=== PATIENT | male | born 1980 | race Two or more races ===

== ENCOUNTER → 2019-12-13 13:05 | Outpatient (CLI) | payer OTHER ==
[2015-05-15 11:33] VITALS: BMI 31.4
[~2019-12-13 13:05] MED LIST: HYDROCODONE-APA1 TAB PO; ULTRAM50 MG PO
== END | disposition home or self-care (01) ==
LOC: D.CT 13:00
PROVIDERS: ATTEND Internal Medicine Pulmonary Disease
DX: R04.2 Hemoptysis (principal)

== ENCOUNTER → 2020-01-07 16:05 | Outpatient (CLI) | payer OTHER ==
[2015-05-15 11:33] VITALS: BMI 31.4
[2020-01-07 17:32] LABS: APTT 30.1 SECONDS (22.8-39.4); INR 1.01 (0.85-1.17); PROTIME 13.3 SECONDS (11.6-15.0)
[2020-01-07 18:06] LABS: BASOPHILS 0.4 % (0-2); EOSINOPHILS 5.3 % (0-7); HEMATOCRIT 50.9 % (42.0-54.0); HEMOGLOBIN 17.6 g/dL (13.5-17.5); IMMATURE GRANULOCYTES 0.4 % (0-5); LYMPHOCYTES 33.7 % (15-50); MCH 29.5 pg (26.0-34.0); MCHC 34.6 g/dL (31.0-37.0); MCV 85.3 fL (80.0-100.0); MEAN PLATELET VOLUME 9.8 fL (7.4-10.4); MONOCYTES 5.4 % (2-11); NEUTROPHILS 54.8 % (40-80); PLATELET COUNT 195 10x3/uL (130-400); RBC 5.97 10x6/uL (4.20-6.10); RDW 13.2 % (11.5-14.5); WBC 10.1 10x3/uL (4.8-10.8)
== END | disposition home or self-care (01) ==
LOC: D.LABREF 16:05
PROVIDERS: ATTEND Internal Medicine Pulmonary Disease
DX: R04.2 Hemoptysis (principal)

== ENCOUNTER → 2020-01-07 16:07 | Outpatient (CLI) | payer OTHER ==
[2015-05-15 11:33] VITALS: BMI 31.4
== END | disposition home or self-care (01) ==
LOC: D.CT 16:00
PROVIDERS: ATTEND Internal Medicine Pulmonary Disease
DX: R04.0 Epistaxis (principal)